=== PATIENT | female | born 1970 | race Caucasian/White ===

== ENCOUNTER 2016-11-10 12:13 | Emergency (ER) | payer OTHER ==
[~2016-11-10] VITALS: Ht 162.6 cm; Wt 87.9 kg
[2016-11-10 12:47] LABS: HEMATOCRIT 38.2 % (36.0-46.0); MCH 30.2 PG (29.0-34.0); MCHC 32.5 G/DL (30.0-36.0); MCV 92.9 FL (83-99); MEAN PLAT.VOLUME 8.9 uM^3 (9.5-12.4); PLATELET COUNT 288 K/uL (156-360); RBC DIS.WIDTH-CV 13.3 % (11.8-14.6); RBC DIS.WIDTH-SD 45.6 % (39-53); RED BLOOD COUNT 4.11 M/uL (3.80-5.20); WHITE BLOOD COUNT 18.1 K/uL (4.1-10.2)
[2016-11-10 13:00] LABS: CHLORIDE 104 mEq/L (99-109); POTASSIUM 3.6 mEq/L (3.7-5.4); SODIUM 137 mEq/L (136-147)
[2016-11-10 13:02] LABS: GLUCOSE 100 mg/dL (70-99)
[2016-11-10 13:03] LABS: ANION GAP 8 MEQ/L (2-14)
[2016-11-10 13:04] LABS: TOTAL BILIRUBIN 0.8 mg/dL (0.0-1.0)
[2016-11-10 13:05] LABS: ALKALINE PHOSPHATASE 130 IU/L (3-129)
[2016-11-10 13:06] LABS: GFR ESTIMATE (CALCULATED) > 59 mL/min/
[2016-11-10 13:07] LABS: UREA NITROGEN (BUN) 13 mg/dL (9-23)
[2016-11-10 13:09] LABS: LIPASE 45 U/L (1.0-51.0)
[2016-11-10 13:14] LABS: QUANTITATIVE HCG < 4.0 MIU/ML
[2016-11-10 13:22] LABS: BILIRUBIN NEGATIVE; BLOOD NEGATIVE; COLOR YELLOW ((YELLOW)); GLUCOSE (STRIP) NEGATIVE; KETONES NEGATIVE; LEUKOCYTES NEGATIVE; NITRITE NEGATIVE; PROTEIN (STRIP) 30; SPECIFIC GRAVITY 1.032 (1.000-1.030); UROBILINOGEN 0.2 MG/DL (0.2-1.0)
[2016-11-10 13:23] LABS: ADD MIUA? YES
[2016-11-10 13:28] LABS: BACTERIA RARE /HPF; EPITHELIAL CELLS 1+ /HPF; MUCUS TRACE /LPF; UCUL ADDED? YES
[2016-11-10 14:10] LABS: TROP-I INTERPRETATION NEGATIVE; TROPONIN-I < 0.01 ng/mL (0.0-0.30)
[2016-11-10] MEDS ORDERED: ZOFRAN ODT4 MG PO (15:37)
[2016-11-10] MEDS ORDERED: BENTYL10 MG PO (15:40)
[2016-11-10 15:50] VITALS: BP 125/67
== END 2016-11-10 16:11 | disposition home or self-care (01) ==
LOC: EME 12:13
DX: K59.00 Constipation, unspecified (principal); R10.13 Epigastric pain; R11.0 Nausea; Z88.1 Allergy status to other antibiotic agents; Z88.6 Allergy status to analgesic agent
CPT/HCPCS: 71020; 74177; 80053; 81003; 83690; 84484; 84702; 85027; 87086; 93005; 99281; 99285; J2405; J3010; J7030